=== PATIENT | male | born 1985 ===

== ENCOUNTER 2024-07-28 01:19 | Outpatient (CLI) | payer OTHER, SELFPAY ==
--- NOTE | 2024-07-28 | DI.MRI_ITS ---
Exam(s) MR LOWER EXTREMITY LT WO EXAM: MR LOWER EXTREMITY LT WO CLINICAL HISTORY: OTHER ACUTE OSTEOMYELITIS LT ANKLE AND FOOT,M86.172,LT GREAT TOE SWELLING, TECHNIQUE: Multiplanar multisequence MRI was performed. COMPARISON: CR XR TOE(S) MIN 2V LT from 07/16/2024 FINDINGS: MARROW/ARTICULATIONS:: There is destruction of the interphalangeal joint of the great toe. There is s ignificant signal abnormality in the proximal phalanx of the great toe with distal T1 ghosting, and h igh signal on fluid sensitive T2 sequences within the bone and interphalangeal joint as well as withi n the distal phalanx. There is also mild diffuse hypo intensity on the non fat sat T1 sequences with in the proximal half of the proximal phalanx of the great toe as well as within the distal phalanx. There are degenerative changes in the great toe metatarsophalangeal joint as well as small joint effu anita. No evidence of osteomyelitis in the great toe metatarsal head. Also no evidence of osteomyeli tis of the 2 subjacent hallucal sesamoid bones. There is phlegmonous soft tissue change in the distal aspect of the 2nd toe. There is signal abnormal ity around and within the distal half of the distal phalanx of the 2nd toe, also suspicious for osteo myelitis. There are significant degenerative changes at the articulation between the navicular bone and medial lateral cuneiform. Also at the level of the 4th and 5th tarsometatarsal joints. EXTRAMUSCULAR SOFT TISSUES: There is phlegmon around the great toe with small cystic pockets which ar e probably microabscesses at this level. OTHER: The visualized flexor and extensor tendons of the foot appear unremarkable. IMPRESSION: 1. There are inflammatory phlegmon in changes around the great toe and around the tip of the distal p halanx of the 2nd toe. 2. There is signal abnormality consistent with destruction osteomyelitis in the proximal phalanx of t he great toe. There is also bone edema within the distal phalanx of the great toe. Suspect that there is septic arthritis of the interphalangeal joint of the great toe. 3. Also findings consistent with probable osteomyelitis in the distal phalanx of the 2nd toe with margarita rounding phlegmon in the soft tissues DATA REPOSITORY:
--- NOTE | 2024-07-28 11:17 | DI.VRAD_ITS ---
PROCEDURE INFORMATION: Exam: MR Left Lower Extremity Without Contrast; Forefoot Exam date and time: 07/28/2024 8:37 AM Age: 39 years old Clinical indication: Swelling, leg or foot; Additional info: Other acute osteomyelitis lt ankle and foot - lt great toe swelling, pain, XR shows bone loss extending into joint TECHNIQUE: Imaging protocol: MR of the left foot without contrast. Exam focused on the forefoot. COMPARISON: CR XR TOE(S) MIN 2V LT 07/16/2024 8:13 AM FINDINGS: Bones/joints: Edema and bony destruction of the proximal phalanx 1st toe. Edema present of the distal phalanx of the 1st toe. Destruction of the interphalangeal joint space of the 1st toe. Marrow signal of the adjacent toes is normal. Marrow signal of the metatarsals is normal. Degenerative narrowing of the 1st metatarsophalangeal joint. Subchondral cystic degenerative changes of the 1st metatarsal head. LIGAMENTS: Collateral ligaments of digits: Unremarkable. No evidence of tear. TENDONS: Flexor tendons of foot: Unremarkable. No evidence of tear. Extensor tendons of foot: Unremarkable. No evidence of tear. Soft tissues: Soft tissue edema/cellulitis. Inflammatory phlegmon present around the 1st toe. Small cystic pockets within the phlegmon measuring 10 x 2 mm. Possible microabscess. IMPRESSION: 1. Soft tissue edema/cellulitis. Inflammatory phlegmon with microabscess around the 1st toe. 2. Edema and destruction proximal phalanx of 1st toe. Edema within the distal phalanx of the 1st toe. Findings are consistent with osteomyelitis. Dictated and Authenticated by: Qamar Patrick MD. Ordering:PINKY Sinha MD
== END 2024-07-28 01:39 ==
PROVIDERS: PCP Physical Therapist; Visit Provider Physical Therapist
DX: M86.172 Other acute osteomyelitis, left ankle and foot (principal)
CPT/HCPCS: 73718